=== PATIENT | male | born 1990 | race Caucasian/White ===

== ENCOUNTER 2020-06-11 13:12 | Outpatient (REF) | payer OTHER, SELFPAY | END 2020-06-11 13:13 | disposition home or self-care (01) | LOC: HO.HMGCLDS 13:12 | PROVIDERS: PCP Internal Medicine; Visit Provider Internal Medicine | DX: Z20.828 Contact with and (suspected) exposure to other viral communicable diseases (principal) | CPT/HCPCS: 36415; 87635 ==